=== PATIENT | female | born 1975 | race Hispanic/Latino ===

== ENCOUNTER → 2023-05-01 | Emergency (ER) | payer SELFPAY ==
--- NOTE | 2023-05-01 19:21 | RAD REPORT ---
EXAM DESCRIPTION: US - Lower Extremity Artery [facility] - 05/01/2023 6:47 pm CLINICAL HISTORY: NUMBNESS/TINGLING COMPARISON: No comparisons TECHNIQUE: Left lower extremity arterial Doppler examination was performed with waveform tracing. FINDINGS: Biphasic waveforms are seen throughout the proximal left lower extremity arterial system t o the level of the mid to distal SFA. Monophasic waveforms from the distal SFA the level of the dorsa lis pedis artery. IMPRESSION: [id number] left lower extremity peripheral vascular disease.
--- NOTE | 2023-05-01 19:49 | ER ---
Nurse's Notes [facility] Name: Theresa Francis Age: 48 yrs Sex: Female : 1975 Arrival Date: 05/01/2023 Time: 18:19 Bed IW1 Private MD: Diagnosis: Peripheral vascular disease, unspecified Presentation: 05/01 18:28 Chief complaint: Patient states: Left foot numbness onset 1 week. Pt denies any trauma cm10 or injury. Coronavirus screen: Vaccine status: Patient reports being unvaccinated. Ebola Screen: Patient denies travel to an Ebola-affected area in the 21 days before illness onset. No symptoms or risks identified at this time. Initial Sepsis Screen: Does the patient meet any 2 criteria? No. Patient's initial sepsis screen is negative. Does the patient have a suspected source of infection? No. Patient's initial sepsis screen is negative. Risk Assessment: Do you want to hurt yourself or someone else? Patient reports no desire to harm self or others. Onset of symptoms was May 01, 2023. 18:28 Method Of Arrival: Ambulatory cm10 18:28 Acuity: JIMMY 4 cm10 Triage Assessment: 18:45 General: Appears in no apparent distress. comfortable, Behavior is calm, cooperative. cm10 Pain: Denies pain. Neuro: No deficits noted. Level of Consciousness is awake, alert, obeys commands, Oriented to person, place, time, situation, Reports numbness in left foot. Cardiovascular: No deficits noted. Patient's skin is warm and dry. Respiratory: No deficits noted. Airway is patent Respiratory effort is even, unlabored, Respiratory pattern is regular, symmetrical. GI: No deficits noted. No signs and/or symptoms were reported involving the gastrointestinal system. : No deficits noted. No signs and/or symptoms were reported regarding the genitourinary system. Derm: No deficits noted. No signs and/or symptoms reported regarding the dermatologic system. Skin is intact, Skin is pink, warm \T\ dry. Musculoskeletal: No deficits noted. Range of motion: intact in all extremities, Reports numbness in left foot. Injury Description: No injury. Historical: - Allergies: 18:29 No Known Allergies; cm10 - PMHx: 18:29 Diabetes mellitus; Hypertensive disorder; cm10 - Immunization history:: Adult Immunizations up to date. - Social history:: Smoking status: Patient reports the use of cigarette tobacco products, smokes one-half pack cigarettes per day. Screenin:53 [facility] ED Fall Risk Assessment (Adult) History of falling in the last 3 months, cm10 including since admission No falls in past 3 months (0 pts). [facility] ED Fall Risk Assessment (Adult) Confusion or Disorientation No (0 pts) Intoxicated or Sedated No (0 pts) Impaired Gait No (0 pts) Mobility Assist Device Used No (0 pt) Altered Elimination No (0 pt) Score/Fall Risk Level 0 - 2 = Low Risk Oriented to surroundings, Maintained a safe environment, Hourly rounding (assess needs \T\ fall precautionary measures) done. Abuse screen: Denies threats or abuse. Abuse screen: Denies injuries from another. Nutritional screening: No deficits noted. Tuberculosis screening: No symptoms or risk factors identified. Vital Signs: 18:28 BP 180 / 92; Pulse 112; Resp 18; Temp 96.8; Pulse Ox 100% ; Weight 52.16 kg; Pain 0/10; cm10 18:28 Pain Scale: Adult cm10 ED Course: 18:23 Patient arrived in ED. mg5 18:24 [facility] G Puckett [facility]-C [facility]. kb 18:24 Dyllan Galeano MD is Attending Physician. kb 18:29 Triage completed. cm10 18:29 Arm band placed on Patient placed in waiting room. cm10 18:48 Lower Extremity Artery [facility] US In Process Unspecified. EDMS 18:54 Patient has correct armband on for positive identification. Provided Education on: ER cm10 process and procedures. . Cardiac monitoring not applicable on this patient. 19:56 No provider procedures requiring assistance completed. Patient did not have IV access cm10 during this emergency room visit. Administered Medications: No medications were administered Medication: 18:53 VIS not applicable for this client. cm10 Outcome: 19:48 Discharge ordered by . kb 19:56 Discharged to home ambulatory, with family, cm10 19:56 Condition: good 19:56 Discharge instructions given to patient, Instructed on discharge instructions, follow up and referral plans. Demonstrated understanding of instructions, follow-up care, 19:56 Patient left the ED. cm10 Signatures: Dispatcher [employer] EDMS Maria G Puckett FNP-C FNP-Ckb Martinez, Clarissa, RN RN cm10 Shanice Stockton mg5
--- NOTE | 2023-05-01 19:49 | EDPHYS ---
Physician Documentation [facility] Name: Theresa Francis Age: 48 yrs Sex: Female : 1975 Arrival Date: 05/01/2023 Time: 18:19 Bed IW1 Private MD: ED Physician Dyllan Galeano HPI: 05/01 20:16 This 48 yrs old Female presents to ER via Ambulatory with complaints of Foot kb Injury - NUMBNESS. 20:16 Pt is a 48 year old female who presents for numbness of left foot for 1 week. Denies kb any other symptoms. Numbness stops at the ankle. Pt ambulates with steady gait. Historical: - Allergies: 18:29 No Known Allergies; cm10 - PMHx: 18:29 Diabetes mellitus; Hypertensive disorder; cm10 - Immunization history:: Adult Immunizations up to date. - Social history:: Smoking status: Patient reports the use of cigarette tobacco products, smokes one-half pack cigarettes per day. ROS: 20:13 Constitutional: Negative for fever, chills, and weight loss, kb 20:13 MS/extremity: Positive for of the left foot, numbness, 20:13 All other systems are negative, Exam: 20:16 Constitutional: This is a well developed, well nourished patient who is awake, alert, kb and in no acute distress. Head/Face: Normocephalic, atraumatic. ENT: Moist Mucous membranes Cardiovascular: Regular rate Respiratory: Respirations even and unlabored. No increased work of breathing. Talking in full sentences Abdomen/GI: Soft, non-tender. No distention Skin: Warm, dry with normal turgor. Normal color. MS/ Extremity: Pulses equal, no cyanosis. Neurovascular intact. Full, normal range of motion. Neuro: Awake and alert, GCS 15, oriented to person, place, time, and situation. Moves all extremities. Normal gait. Vital Signs: 18:28 BP 180 / 92; Pulse 112; Resp 18; Temp 96.8; Pulse Ox 100% ; Weight 52.16 kg; Pain 0/10; cm10 18:28 Pain Scale: Adult cm10 MDM: 18:24 Patient medically screened. kb 20:15 Differential diagnosis: neuropathy, arterial occlusion. Data reviewed: vital signs, kb nurses notes. Counseling: I had a detailed discussion with the patient and/or guardian regarding the historical points, exam findings, and any diagnostic results supporting the discharge/admit diagnosis, radiology results, the need for outpatient follow up, a family practitioner, to return to the emergency department if symptoms worsen or persist or if there are any questions or concerns that arise at home. 05/01 18:29 Order name: Lower Extremity Artery [facility] US; Complete Time: 19:26 kb Administered Medications: No medications were administered Disposition Summary: 05/01/23 19:48 Discharge Ordered Notes: Location: Home kb Condition: Stable kb Diagnosis - Peripheral vascular disease, unspecified kb Followup: kb - With: Emergency Department - When: As needed - Reason: Worsening of condition Followup: kb - With: Private Physician - When: 2 - 3 days - Reason: Recheck today's complaints, Continuance of care, Re-evaluation by your physician Discharge Instructions: - Discharge Summary Sheet kb - Diabetic Neuropathy kb - Peripheral Vascular Disease, [id number] kb Forms: - Medication Reconciliation Form kb - Thank You Letter kb - Antibiotic Education kb - Prescription Opioid Use kb - Patient Portal Instructions kb - Leadership Thank You Letter kb Signatures: Dispatcher [employer] Maria G Kim, WHITE SOURER-C WHITE SOURER-Carmelita Kee, RN RN cm10
[2023-05-01 20:23] VITALS: BP 180/92; TEMP 96.8; O2SAT 100
== END ==
LOC: ER 18:19
DX: I73.9 Peripheral vascular disease, unspecified (principal)
CPT/HCPCS: 93926; 99282